=== PATIENT | male | born 1980 | race Caucasian/White ===

== ENCOUNTER 2023-02-18 16:51 | Emergency (ER) | payer OTHER ==
[2023-02-18 17:02] VITALS: BP 128/83; PULSE 71; RESP 17; TEMP 98.2; BMI 26.4
== END 2023-02-18 18:38 | disposition home or self-care (01) ==
LOC: JERFT 16:51
DX: M25.562 Pain in left knee (principal); M25.512 Pain in left shoulder; M54.2 Cervicalgia; R07.89 Other chest pain; V49.40XA Driver injured in collision with unspecified motor vehicles in traffic accident, initial encounter; Y92.410 Unspecified street and highway as the place of occurrence of the external cause
CPT/HCPCS: 99282-25